=== PATIENT | male | born 2000 | race Two or more races ===

== ENCOUNTER 2021-05-15 17:38 | Emergency (ER) | payer OTHER ==
[~2021-05-15] VITALS: Ht 185.4 cm; Wt 84.6 kg
[2021-05-15 17:56] VITALS: BP 119/61
[2021-05-15] MEDS ORDERED: DOXYCYCLINE HYCLATE 100 MG TABLET PO ONE (18:15)
[2021-05-15] MEDS ORDERED: DOXY100C3 PO (18:19)
--- NOTE | 2021-05-15 18:20 | PHYS DOC ---
Past Medical History Past Medical History: No Pertinent History (MICK RASMUSSEN APRN) Past Surgical History: Other Additional Past Surgical Histo: eye surgery (MICK RASMUSSEN APRN) Smoking Status: Never Smoker Alcohol Use: None Drug Use: None (MICK RASMUSSEN APRN) General Adult EDM: Chief Complaint: INSECT BITE HPI: HPI: Patient is a 21-year-old male that presents today with a reddened area on the left hip thigh area. Patient states that on Wednesday he noticed a raised area that he thought was a pimple, he said he squeezed it he only got blood out, he also said he had some fever and chills as well, he says that over the last couple of days he has noticed the reddened area spreading and that is the reason he came to the emergency department. Patient does not recall a bite and does not have any other areas on his body that resembled this area, he states that he picked at the wound with his fingers and has cleansed it with alcohol at home to keep it clean. Patient states he does not recall when his last tetanus shot was. (MICK RASMUSSEN WELL SERVICES OPERATOR) Review of Systems: Review of Systems: Constitutional: Denies fever or chills. [] Eyes: Denies change in visual acuity. [] HENT: Denies nasal congestion or sore throat. [] Respiratory: Denies cough or shortness of breath. [] Cardiovascular: Denies chest pain or edema. [] GI: Denies abdominal pain, nausea, vomiting, bloody stools or diarrhea. [] : Denies dysuria. [] Musculoskeletal: Denies back pain or joint pain. [] Integument: Wound, reddened area left hip area Neurologic: Denies headache, focal weakness or sensory changes. [] Endocrine: Denies polyuria or polydipsia. [] Lymphatic: Denies swollen glands. [] Psychiatric: Denies depression or anxiety. [] (MICK RASMUSSEN APRN) Heart Score: C/O Chest Pain: N/A Risk Factors: Risk Factors: DM, Current or recent (<one month) smoker, HTN, HLP, family h istory of CAD, obesity. Risk Scores: Score 0 - 3: 2.5% MACE over next 6 weeks - Discharge Home Score 4 - 6: 20.3% MACE over next 6 weeks - Admit for Clinical Observation Score 7 - 10: 72.7% MACE over next 6 weeks - Early Invasive Strategies (MICK RASMUSSEN APRN) Allergies: Allergies: Allergies Coded Allergies Type Severity Reaction Last Updated Verified No Known Drug Allergies 12/14/13 No (MICK RASMUSSEN APRN) Physical Exam: PE: Constitutional: Well developed, well nourished, no acute distress, non-toxic appearance. [] HENT: Normocephalic, atraumatic, bilateral external ears normal, oropharynx moist, no oral exudates, nose normal. [] Eyes: PERRLA, EOMI, conjunctiva normal, no discharge. [] Neck: Normal range of motion, no tenderness, supple, no stridor. [] Cardiovascular:Heart rate regular rhythm, no murmur [] Lungs & Thorax: Bilateral breath sounds clear to auscultation [] Abdomen: Bowel sounds normal, soft, no tenderness, no masses, no pulsatile masses. [] Skin: Patient has a ecchymotic area measuring about 1 cm x 2 cm on the left hip area, he has an erythemic area surrounding that that is approximately 25 cm x 15 cm. Area is erythemic and warm to touch. There is no drainage coming from the wound. Back: No tenderness, no CVA tenderness. [] Extremities: No tenderness, no cyanosis, no clubbing, ROM intact, no edema. [] Neurologic: Alert and oriented X 3, normal motor function, normal sensory function, no focal deficits noted. [] Psychologic: Affect normal, judgement normal, mood normal. [] (MICK RASMUSSEN APRN) Current Patient Data: Vital Signs: Vital Signs Date Time Temp Pulse Resp B/P (MAP) Pulse Ox O2 Delivery O2 Flow Rate FiO2 05/15/21 17:56 97.8 85 16 119/61 (80) 100 Room Air 97.8 (MICK RASMUSSEN APRN) EKG: EKG: [] (MICK RASMUSSEN APRN) Radiology/Procedures: Radiology/Procedures: [] (MICK RASMUSSEN APRN) Course & Med Decision Making: Course & Med Decision Making Pertinent Labs and Imaging studies reviewed. (See chart for details) [address] Fierro he recommended placing patient on doxycycline for the next 10 days to give him a list of community resources to follow-up with the clinic or return here in the next 5 to 7 days if the area expands or worsens in any way. Patient verbalizes understanding of this and will follow up with the clinics. (MICK RASMUSSEN APRN) Course & Med Decision Making I was the Attending physician on the above date of service of this patient. This patient was evaluated, examined, treated, and dispositioned from the emergency department by the mid-level practitioner. I reviewed care of patient with FISHER SPEAR and personally saw patient repeating certain aspects of history and physical exam. I recommended need for doxycycline administration and close outpatient follow-up Electronically signed, Faith Moreno DO (FAITH MORENO DO) Jorge Disclaimer: Jorge Disclaimer: This electronic medical record was generated, in whole or in part, using a voice recognition dictation system. (MICK RASMUSSEN APRN) Departure Departure Impression: Primary Impression: Cellulitis Qualified Codes: L03.319 - Cellulitis of trunk, unspecified Disposition: HOME / SELF CARE / HOMELESS Condition: STABLE Referrals: NON,STAFF (PCP) Patient Instructions: Cellulitis Additional Instructions: Doxycycline 100 mg take 1 tablet twice daily for 10 full days Tylenol and/or ibuprofen as needed for fever and pain Follow-up with one of the community resources listed below or on the brochure provided for further management of this Return to the emergency department if the reddened area spreads in any way, you develop a fever while taking your antibiotics, or you have drainage coming from that area. Chucky [facility] [address] [place] [address] [facility] [address] [place] [address] [facility] [address] [facility] [place] [address] [facility] [address] [place] [address] [facility] [address] [place] [address] [facility] [address] [place] [address] Julienhailey [address] [place] [address] [facility] [address] [place] [address] [facility] [address] [place] [address] [facility] [address] [place] [address] Scripts Doxycycline Hyclate (DOXYCYCLINE HYCLATE) 100 Mg Capsule 1 CAP PO BID, #20 CAP Prov: MICK RASMUSSEN APRN 05/15/21 MICK RASMUSSEN APRN May 15, 2021 18:20 FAITH MORENO DO May 20, 2021 07:30
[2021-05-15] MEDS ORDERED: DIPHTH,PERTUSS(ACELL),TET TOX 0.5 ML DISP.SYRIN. VAX IM ONE (18:30)
== END 2021-05-15 18:44 | disposition home or self-care (01) ==
LOC: ER 17:38
DX: L03.319 Cellulitis of trunk, unspecified (principal); M25.552 Pain in left hip; M79.652 Pain in left thigh; R50.9 Fever, unspecified
CPT/HCPCS: 90471; 90715; 99283-25